=== PATIENT | female | born 2005 | race Caucasian/White ===

== ENCOUNTER 2025-05-07 20:30 | Emergency (ER) | payer OTHER, SELFPAY ==
[2025-05-07 20:47] VITALS: BP 159/77; PULSE 110; RESP 18; TEMP 36.6; O2SAT 99; BMI 50.8
--- NOTE | 2025-05-07 20:53 | ECG_ITS ---
Test Reason : tachy Blood Pressure : */* mmHG Vent. Rate : 87 BPM Atrial Rate : 87 BPM P-R Int : 146 ms QRS Dur : 84 ms QT Int : 366 ms P-R-T Axes : 19 46 15 degrees QTcB Int : 440 ms Normal sinus rhythm Possible Lateral infarct , age undetermined Abnormal ECG No previous ECGs available Referred By: Generic ED Physician Electronically Signed By: MARINA HOBSON MD
--- NOTE | 2025-05-07 21:01 | ED_ITS ---
HPI - General Adult General Chief complaint: General Medical Stated complaint: for iv fluid, has pots + eds Time Seen by Provider: 05/07/25 21:01 History of Present Illness ED Provider: Shree GREEN narrative: The patient is a 20-year-old woman who is a student at [employer]. 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 She is on a number of medications including propranolol and Mestinon. She is from [facility] and has physicians including a rubber block layer in [facility]. She says that under periods of stress she experiences what she describes as a flare of her chronic symptoms that is often helped by IV fluids. She says that she has felt unwell for about 3 or 4 days with body aches and headache and fatigue typical of her flares of her chronic illnesses. She says she has been in touch with her primary care doctor in [facility] as well as her rubber block layer and they advised her to come to an emergency room for IV fluids. She is also requesting ketorolac for pain. She says that her symptoms are typical of her flare episodes. Her last such episode when she needed to go to an emergency room was January, 3 months ago. At that time she went to an emergency room in [facility]. Related Data Allergies Allergy/AdvReac Type Severity Reaction Status Date / Time Iodinated Contrast Media Allergy Hives Verified 05/07/25 20:52 (Contrast Dye) Review of Systems 2 Review of Systems: Yes all other systems are reviewed and are negative [facility] Social History Social History Smoked in Last 30 Days: No Use of substances other than those prescribed or required for medical reasons: Yes Substance Use Type: Marijuana Substance Use Frequency: Occasionally Advance Directives: No Advance Directives Information Provided: No Do you have a plan to hurt others: No Plan Physical Exam ED Vital Signs: Vital Signs - 24 hr 05/07/25 20:47 05/08/25 00:17 05/08/25 02:04 Temperature 97.8 F 97.9 F 97.9 F Pulse Rate 110 H 77 77 Respiratory Rate 18 18 18 Blood Pressure 159/77 H 118/79 118/79 Pulse Oximetry 99 99 99 Oxygen Delivery Method Room Air Room Air Room Air BMI result Body Mass Index 50.8 Const Other: The patient is awake and alert. She does not appear in any distress. Orientation/consciousness: patient oriented x3 HENMT Other: The face is symmetrical. ?Mucous membranes moist. Eyes General: appearance normal, both eyes and all related structures Neck Neck: Yes full ROM and Yes no lymphadenopathy Resp Effort & Inspection: normal respiratory effort Auscultation: clear to auscultation bilaterally Cardio Rate: regular rate Rhythm: regular rhythm Heart sounds: S1 normal heart sound present and S2 normal heart sound present GI Other: Abdomen is soft and nontender Skin Other: The skin is dry and unremarkable Neuro General: patient oriented x3, tone normal, moves all extremities, no focal motor deficits and CN's II-XI intact bilaterally Extrem Other: There is no calf swelling or tenderness. No asymmetry. No peripheral edema. Medications Administered Discontinued Medications Generic Name Dose Route Start Last Admin Trade Name Freq PRN Reason Stop Dose Admin Sodium Chloride 1,000 mls @ 999 mls/hr 05/07/25 21:15 05/07/25 23:11 Ns IV 05/07/25 22:15 Infused .Q1H1M DANIELA Infusion Lactated Ringer's 1,000 mls @ 999 mls/hr 05/07/25 22:30 05/08/25 01:04 Lr IV 05/07/25 23:30 Infused .Q1H1M DANIELA Infusion Acetaminophen 1,000 mg in 100 mls @ 400 mls/hr 05/07/25 23:16 05/08/25 00:40 Ofirmev IV 05/07/25 23:30 Infused ONCE ONE Infusion Ketorolac Tromethamine 15 mg 05/07/25 21:11 05/07/25 21:45 Ketorolac Tromethamine 15 Mg/Ml Vial IVPUSH 05/07/25 21:12 15 mg ONCE ONE Administration Ketorolac Tromethamine 15 mg 05/08/25 00:12 05/08/25 00:17 Ketorolac Tromethamine 15 Mg/Ml Vial IVPUSH 05/08/25 00:13 15 mg ONCE ONE Administration Medical Decision Making Medical Decision Making MDM Narrative: The patient is a 20-year-old female who was a student at [employer]. She is from [facility]. She states that she has Lisa-Danlos syndrome, pots, and mast cell activation syndrome and chronic fatigue. She says that she is having a flare of her chronic illnesses. She says that she feels weak and has pains all over her body. She says that when she has flares like this she gets fluids and pain medications at an emergency room. The patient had an EKG and labs done that were are unremarkable. Clinically the patient does not appear unwell. She was given 2 L of crystalloid. She was given IV ketorolac and IV acetaminophen. The patient requested tramadol after saying that she did not get much pain relief from these medications. I told her I did not feel the tramadol was a very appropriate medication. Ultimately she seemed to feel somewhat better and was discharged. Lab Data 05/07/25 21:24 05/07/25 21:24 Labs: Lab Results 05/07/25 Range/Units 21:24 WBC 9.5 (4.8-10.8) X10*3/uL RBC 4.59 (4.20-5.50) X10*6/uL Hgb 13.4 (12.0-16.0) g/dl Hct 39.8 (37.0-47.0) % MCV 86.7 (80.0-98.0) fL MCH 29.2 (27.0-33.0) pg MCHC 33.7 (31.0-35.0) g/dl RDW 12.4 (11.0-16.0) % Plt Count 330 (160-400) X10*3/uL MPV 9.7 (9.4-12.3) fL Immature Gran % (Auto) 0.2 (0.0-0.4) % Neut % (Auto) 64.4 (45-73) % Lymph % (Auto) 23.2 (20-40) % Cowley % (Auto) 9.6 (2-11) % Eos % (Auto) 2.1 (0-4) % Baso % (Auto) 0.5 (0-2) % Lymph # (Auto) 2.2 (1.2-4.9) X10*3/uL Cowley # (Auto) 0.9 (0.1-1.2) X10*3/uL Eos # (Auto) 0.2 (0.0-0.4) X10*3/uL Baso # (Auto) 0.1 (0.0-0.2) X10*3/uL Abs Immat Gran (auto) 0.02 (0.00-0.03) X10*3/uL Absolute Neuts (auto) 6.1 (2.0-8.3) x10*3/uL Absolute Nucleated RBC 0.000 (0.0-0.012) X10*3/uL Nucleated RBC % (auto) 0.0 (0.0-0.2) /100WBC Sodium 141 (135-145) mmol/L Potassium 3.8 (3.3-5.1) mmol/L Chloride 107 (96-108) mmol/L Carbon Dioxide 25 (22-29) mmol/L Anion Gap 13 (12-20) BUN 8 L (9-16) mg/dL Creatinine 0.64 (0.5-1.4) mg/dL Estim Creat Clear Calc 189.9 Estimated GFR > 60 Random Glucose 108 (60-115) mg/dL Calcium 9.5 (8.4-10.2) mg/dL Magnesium 2.0 (1.6-2.6) mg/dL Total Bilirubin 0.3 (0.0-1.0) mg/dL AST 20 (5-31) U/L ALT 24 (0-31) U/L Alkaline Phosphatase 65 (39-117) U/L Total Creatine Kinase 50 (26-140) U/L Troponin I High Sens < 2.7 (<3.5-17.0) ng/L C-Reactive Protein 0.55 H (< or = 0.50) mg/dL Total Protein 7.6 (6.5-8.0) g/dL Albumin 4.4 (3.5-5.0) g/dL COVID-19 ([facility]) Negative (Negative) COVID-19 Clin Com See Note Influenza Type A (NELIDA) Negative (Negative) Influenza Type B (NELIDA) Negative (Negative) Influenza A & B Note See Note Independent Interpretation I performed an independent interpretation of an: EKG Interpretation: EKG at 21:15 shows normal sinus rhythm at 87 beats per minute. Intervals are normal. No acute ischemic changes. No old EKGs available for comparison. Discharge Plan Discharge Clinical Impression: Generalized pain Patient Disposition: Home, Self-Care Additional Instructions: Your testing in the emergency room today was very reassuring from the point of view of any acutely dangerous process. Please stay in touch with your doctors in [facility] for additional advice. Return to the emergency room if significantly worse. Referrals: [facility] [Provider Group] Interventions: ED Discharge Assessment Last Done: 05/08/25 02:04 Discharge Date/Time: 05/08/25 02:04 Print Language: Bahraini
[2025-05-07 21:30] LABS: MANUAL DIFF FLAG NO
[2025-05-07 21:31] LABS: Hematocrit 39.8 % (37.0-47.0); Hemoglobin 13.4 g/dl (12.0-16.0); Imm Gran Abs Auto 0.02 X10*3/uL (0.00-0.03); Imm Gran Pct Auto 0.2 % (0.0-0.4); Lymphocytes Absolute Auto 2.2 X10*3/uL (1.2-4.9); Mean Corpuscular HGB Conc 33.7 g/dl (31.0-35.0); Mean Corpuscular Hemoglobin 29.2 pg (27.0-33.0); Mean Corpuscular Volume 86.7 fL (80.0-98.0); NRBC Abs Auto 0.000 X10*3/uL (0.0-0.012); NRBC Pct Auto 0.0 /100WBC (0.0-0.2); Platelet Count 330 X10*3/uL (160-400); Red Blood Count 4.59 X10*6/uL (4.20-5.50); White Blood Count 9.5 X10*3/uL (4.8-10.8)
[2025-05-07 21:44] LABS: Magnesium 2.0 mg/dL (1.6-2.6)
[2025-05-07 21:45] LABS: Alanine Aminotransferase 24 U/L (0-31); Albumin Level 4.4 g/dL (3.5-5.0); Alkaline Phosphatase 65 U/L (39-117); Anion Gap 13 (12-20); Aspartate Amino Transferase 20 U/L (5-31); Blood Urea Nitrogen 8 mg/dL (9-16); Calcium 9.5 mg/dL (8.4-10.2); Carbon Dioxide 25 mmol/L (22-29); Chloride 107 mmol/L (96-108); Creatinine Clr Calc Pharmacy 189.9; Estimated Glomerular Filt Rate > 60; Potassium 3.8 mmol/L (3.3-5.1); Sodium 141 mmol/L (135-145); Total Protein 7.6 g/dL (6.5-8.0)
[2025-05-07 21:53] LABS: Troponin-I High Sensitivity < 2.7 ng/L (<3.5-17.0)
[2025-05-07 21:54] LABS: IDNOW Serial# 152EDE1D; IDNOW Serial# 16C4AD1C; Influenza B2 Negative (Negative)
[2025-05-07 21:55] LABS: COVID-19 Test Negative (Negative)
[2025-05-07] MEDS: Lactated Ringers 1,000 ML 999 ML IV (23:12)
[2025-05-08 00:17] VITALS: BP 118/79; PULSE 77; RESP 18; TEMP 36.6; O2SAT 99
[2025-05-08 02:03] VITALS: BP 118/79; PULSE 77; RESP 18; TEMP 36.6; O2SAT 99
[2025-05-08 02:04] VITALS: BP 118/79; PULSE 77; RESP 18; TEMP 36.6; O2SAT 99
== END 2025-05-08 02:17 | disposition home or self-care (01) ==
PROVIDERS: Emergency Provider Emergency Medicine
DX: G90.A Postural orthostatic tachycardia syndrome [POTS] (principal); R52 Pain, unspecified; Q79.60 Ehlers-Danlos syndrome, unspecified; R53.82 Chronic fatigue, unspecified; R11.0 Nausea; R00.0 Tachycardia, unspecified; Z79.899 Other long term (current) drug therapy; Z11.52 Encounter for screening for COVID-19
CPT/HCPCS: 36415; 80053; 82550; 83735; 84484; 85025; 86140; 87502; 87635; 93005; 96361; 96374; 96375; 96376; 99285; J0131; J1885; J7120

== ENCOUNTER → 2025-05-07 20:53 | Outpatient (BNV) | payer OTHER, SELFPAY | PROVIDERS: Emergency Provider Emergency Medicine; Visit Provider Internal Medicine Cardiovascular Disease | DX: R94.31 Abnormal electrocardiogram [ECG] [EKG] (principal); R00.0 Tachycardia, unspecified | CPT/HCPCS: 93010 ==